=== PATIENT | female | born 1955 | race Caucasian/White ===

== ENCOUNTER 2021-01-03 13:22 | Outpatient (REF) | payer MEDICARE, SELFPAY ==
[2021-01-03 14:41] LABS: Blood Urea Nitrogen 18 mg/dL (9-16); Estimated Glomerular Filt Rate > 60
== END 2021-01-03 13:23 | disposition home or self-care (01) ==
LOC: HO.LAB 13:22
PROVIDERS: Visit Provider Psychiatry & Neurology Neurology
DX: G40.909 Epilepsy, unspecified, not intractable, without status epilepticus (principal)
CPT/HCPCS: 36415; 82565; 84520

== ENCOUNTER 2021-01-17 11:15 | Outpatient (REF) | payer MEDICARE, SELFPAY ==
--- NOTE | ~2021-01-17 | MR_ITS ---
EXAMINATION: MR BRAIN WITHOUT AND WITH CONTRAST CLINICAL INFORMATION: Seizure disorder. COMPARISON: There are no prior studies available for comparison. TECHNIQUE: Multiplanar, multisequence MRI of the brain was obtained before and after the intravenous administration of 5.5 mL Gadavist. FINDINGS: No diffusion abnormalities are identified to suggest an acute or subacute infarct. No mass effect or midline shift is seen. There is mild commensurate prominence of the ventricles and sulci consistent with diffuse volume loss. There are scattered areas of hyperintense T2 and FLAIR signal in the periventricular and subcortical white matter and the [place], consistent with chronic microvascular ischemic changes. The hippocampi are symmetric in size and signal. 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 No discrete extra-axial fluid collections are seen; there is mild prominence of the extra-axial CSF around the cerebral convexities, slightly more prominent on the left. There is a small developmental venous anomaly in the left middle frontal gyrus. No pathologic magnetic susceptibility artifact is identified on the gradient refocused acquisition. The cerebellar tonsils have normal contour and position, and the craniocervical junction appears normal. Marrow signal and midline structures are normal. The major intracranial flow-voids at the level of the [place] are preserved. The dural venous sinus flow-voids are maintained. The mastoid air cells and paranasal sinuses are well-aerated. MR/MR head/brain wo/w con IMPRESSION: 1. There are no acute bleeds or territorial infarcts. There is no abnormal enhancement. 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 2. There are chronic microvascular ischemic changes and there is diffuse volume loss.
== END 2021-01-17 11:16 | disposition home or self-care (01) ==
LOC: HO.MRI 11:15
PROVIDERS: Visit Provider Psychiatry & Neurology Neurology
DX: G40.909 Epilepsy, unspecified, not intractable, without status epilepticus (principal)
CPT/HCPCS: 70553; A9585

== ENCOUNTER 2021-11-14 14:07 | Outpatient (REF) | payer MEDICARE, SELFPAY ==
[2021-11-14 14:38] LABS: Binax Internal Control QC Valid; Binax Now Covid-19 Ag Positive (Negative)
== END 2021-11-14 14:08 | disposition home or self-care (01) ==
LOC: HO.HMGCLDS 14:07
PROVIDERS: Visit Provider Nurse Practitioner Family
DX: Z20.822 Contact with and (suspected) exposure to COVID-19 (principal); R05.3 Chronic cough
CPT/HCPCS: 87811; C9803

== ENCOUNTER 2023-06-25 12:18 | Outpatient (AMB) | payer MEDICARE, SELFPAY ==
[2023-06-25 12:55] VITALS: BP 126/78; PULSE 63; TEMP 36.3; O2SAT 96; BMI 25.0
--- NOTE | 2023-06-25 12:55 | AM.OFFWIN_ITS ---
Intake Vital Signs 06/25/23 12:55 Height 4 ft 11 in Weight 124 lb BMI 25.0 BP 126/78 Blood Pressure Location Lt brachial Position Sitting Pulse 63 Pulse Source Pulse Oximeter Temp 97.3 F Temp Source Temporal Artery Scan Pulse Oximetry (%) 96 Oxygen Delivery Method Room Air Intake Visit Reasons: EST/ left ear blocked (lobby masked) Intake Note: pt is here today for lft ear blocked started 3 days ago Patient Tobacco Use Status: Never used Tobacco Allergies No Known Allergies Allergy (Verified 06/25/23 12:57) Medication List - Last Reconciled 06/25/23 by Laz [place] MD gabapentin 600 mg PO BID lamotrigine mg PO levothyroxine 50 mcg PO DAILY methylphenidate HCl 5 mg PO BID oxybutynin chloride ER 5 mg PO DAILY sertraline 0 mg PO simvastatin 20 mg PO BEDTIME Do you need a note to return to daycare/school/sports/work: No HPI EST/ left ear blocked (lobby masked) HPI Details Patient is 68-year-old female came in today to be evaluated for possible ear infection left side Patient says that she is having mild discomfort and difficulty hearing from this ear for the past 4 days She has no fever no chills no headache no sore throat no cough no nausea no vomiting no diarrhea On examination patient have erythema of tympanic membrane left side I have sent Augmentin to be taken 2 times a day for 7 days Patient need to follow up with PCP after that for re-evaluation [facility] Social History Patient Tobacco Use Status: Never used Tobacco Review of Systems Const All systems reviewed & are unremarkable except as noted in HPI and below Physical Exam Vital Signs: Last Vital Signs Temp 97.3 F 06/25/23 12:55 Pulse 63 06/25/23 12:55 BP 126/78 06/25/23 12:55 Pulse Ox 96 06/25/23 12:55 Oxygen Delivery Method Room Air 06/25/23 12:55 BMI result Body Mass Index 25.0 Const General: no acute distress Orientation/consciousness: patient oriented x3 HEENT Other: Left ear tympanic membrane with erythema and dull light reflex, no pain with traguspressure Eyes General: appearance normal, both eyes and all related structures Resp Effort & Inspection: normal respiratory effort and able to speak in complete sentences Auscultation: clear to auscultation bilaterally Cardio Other: S1 S2 Neuro General: patient oriented x3 Psych Mental Status: mental status grossly normal Assessment & Plan Assessment & Plan (1) Infection of ear, external, left: Code(s): H60.392 - Other infective otitis externa, left ear Plan Patient is 68-year-old female came in today to be evaluated for possible ear infection left side Patient says that she is having mild discomfort and difficulty hearing from this ear for the past 4 days She has no fever no chills no headache no sore throat no cough no nausea no vomiting no diarrhea On examination patient have erythema of tympanic membrane left side I have sent Augmentin to be taken 2 times a day for 7 days Patient need to follow up with PCP after that for re-evaluation Medications: New amoxicillin-pot clavulanate 875-125 mg 1 tab PO BID 14 tabs 0RF 7 days Coding Level of Care Code Est Pt Level 3 (03004) Diagnoses Infection of ear, external, left H60.392
== END 2023-06-25 13:17 | disposition home or self-care (01) ==
PROVIDERS: Visit Provider Internal Medicine
DX: H60.392 Other infective otitis externa, left ear (principal)
CPT/HCPCS: 99213

== ENCOUNTER 2023-07-25 13:13 | Outpatient (AMB) | payer MEDICARE, SELFPAY ==
[2023-07-25 13:22] VITALS: BP 128/72; PULSE 71; TEMP 36.6; O2SAT 99; BMI 25.0
--- NOTE | 2023-07-25 13:22 | AM.OFFWIN_ITS ---
Intake Vital Signs 07/25/23 13:22 Height 4 ft 11 in Weight 124 lb BMI 25.0 BP 128/72 Blood Pressure Location Lt brachial Position Sitting Pulse 71 Pulse Source Pulse Oximeter Temp 97.8 F Temp Source Temporal Artery Scan Pulse Oximetry (%) 99 Oxygen Delivery Method Room Air Intake Visit Reasons: EP LT ear Intake Note: pt is here today for lft ear started 06/25 Patient Tobacco Use Status: Never used Tobacco Allergies No Known Allergies Allergy (Verified 07/25/23 13:25) Do you need a note to return to daycare/school/sports/work: Yes HPI HPI Comments History of Present Illness Details 68 y/o female patient who presents to [facility] in clinic with c/o Left ear blocked and mild discomfort. Symptoms started ~around 05/2023. She was seen at [facility] in clinic 06/22 and diagnosed with Otitis media. Pt completed a course of Augmentin. Pt reports hard of hearing on the left side ear. She has been putting in Cotton Balls to prevent infection from getting inside ear, she has notice Yellow fluid on cotton ball. Denies fevers, chills, nausea or vomiting. [facility] Social History Patient Tobacco Use Status: Never used Tobacco Review of Systems Const All systems reviewed & are unremarkable except as noted in HPI and below Physical Exam Const General: comfortable and no acute distress Orientation/consciousness: patient oriented x3 HEENT Head: Yes normocephalic Ears: external ears normal, TM abnormal erythematous (Mild redness left ear) and with fluid behind the TM on the left; not bulging, not bullous, not perforated and not retracted and unable to visualize TM on the right General nose exam: Normal nasal mucous membranes and turbinates present Mouth: moist mucous membranes Throat: Yes posterior oropharynx normal Neuro General: patient oriented x3 Assessment & Plan Assessment & Plan (1) Discomfort of left ear: Code(s): H92.02 - Otalgia, left ear Plan: - No infection see left ear, but fluid behind TM - Right ear with cerumen impaction. - Acetaminophen for pain relief. - Advised to stop putting things inside ears. Medications: New carbamide peroxide 6.5% (Debrox) 5 drps otic (ears) BID 15 mL 0RF 7 days H92.02 - Otalgia, left ear Coding Level of Care Code Est Pt Level 3 (92764) Diagnoses Discomfort of left ear H92.02 Time Spent (min) 15
== END 2023-07-25 14:51 | disposition home or self-care (01) ==
PROVIDERS: Visit Provider Nurse Practitioner Family
DX: H92.02 Otalgia, left ear (principal)
CPT/HCPCS: 99213